=== PATIENT | female | born 1975 | race Caucasian/White ===

== ENCOUNTER 2024-05-14 15:09 | Outpatient (CLI) | payer OTHER | END 2024-05-14 15:10 | disposition home or self-care (01) | LOC: CSHMRI 15:09 | PROVIDERS: ATTEND Internal Medicine | DX: M54.81 Occipital neuralgia (principal); R51.9 Headache, unspecified; M54.2 Cervicalgia; R90.82 White matter disease, unspecified; I67.82 Cerebral ischemia; M47.812 Spondylosis without myelopathy or radiculopathy, cervical region; M48.02 Spinal stenosis, cervical region; E07.9 Disorder of thyroid, unspecified | CPT/HCPCS: 70553; 72141; 76376 ==